=== PATIENT | female | born 1965 | race American Indian/Alaskan Native ===

== ENCOUNTER 2017-01-26 02:13 | Observation (INO) | payer BC ==
[2017-01-26 02:13] VITALS: BMI 30.7
--- NOTE | 2017-01-26 02:39 | ED PDOC ---
Arrival/HPI - General Chief Complaint: Chest Pain Time Seen by Provider: 01/26/17 02:29 Historian: Patient - History of Present Illness Narrative History of Present Illness (Text): 01/26/17 02:32 Nusrat Haider is a 51 year old female, who denies any significant past medical history, who presents to the emergency department complaining of chest pain. Patient states she woke up tonight with left-sided chest pain radiating to her left shoulder. Patient states she has experienced similar pain in the past but has not gone for further evaluation. Patient reports family history of hypertension. Patient denies any fever, chills, shortness of breath, nausea, vomiting, diarrhea, urinary symptoms, back pain, neck pain, headache, dizziness , or any other complaints. Symptom Onset: Gradual Symptom Course: Unchanged Activities at Onset: Light Context: Home Past Medical History - Provider Review Nursing Documentation Reviewed: Yes - Reproductive Menopause: Yes - Psychiatric Hx Substance Use: No - Surgical History Hx Section: Yes - Anesthesia Hx Anesthesia: Yes Hx Anesthesia Reactions: No Hx Malignant Hyperthermia: No Family/Social History - Physician Review Nursing Documentation Reviewed: Yes Family/Social History: Unknown Family HX Smoking Status: Never Smoked Hx Alcohol Use: No Hx Substance Use: No Allergies/Home Meds Allergies/Adverse Reactions: Allergies No Known Allergies Allergy (Verified 01/26/17 02:23) Home Medications: Home Meds Medication Instructions Recorded Confirmed No Known Home Med 01/26/17 01/26/17 Review of Systems - Physician Review All systems were reviewed & negative as marked: Yes - Review of Systems Constitutional: Normal. absent: Fevers Eyes: Normal ENT: Normal Respiratory: Normal. absent: SOB, Cough Cardiovascular: Chest Pain Gastrointestinal: Normal. absent: Abdominal Pain, Diarrhea, Nausea, Vomiting Genitourinary Female: Normal. absent: Dysuria, Frequency, Hematuria, Urine Output Changes Musculoskeletal: Normal. absent: Back Pain, Neck Pain Skin: Normal. absent: Rash Neurological: Normal. absent: Headache, Dizziness Endocrine: Normal Hemo/Lymphatic: Normal Psychiatric: Normal Physical Exam Vital Signs Reviewed: Yes Vital Signs Temp Pulse Resp BP Pulse Ox 01/26/17 05:27 18 01/26/17 04:48 65 16 143/89 100 01/26/17 04:04 62 16 180/106 H 100 01/26/17 02:24 97.7 F 63 18 153/97 H 99 Temperature: Afebrile Blood Pressure: Hypertensive Pulse: Regular Respiratory Rate: Normal Appearance: Positive for: Well-Appearing, Non-Toxic, Comfortable Pain Distress: None Mental Status: Positive for: Alert and Oriented X 3 - Systems Exam Head: Present: Atraumatic, Normocephalic Pupils: Present: PERRL Extroacular Muscles: Present: EOMI Conjunctiva: Present: Normal Mouth: Present: Moist Mucous Membranes Neck: Present: Normal Range of Motion Respiratory/Chest: Present: Clear to Auscultation, Good Air Exchange. No: Respiratory Distress, Accessory Muscle Use Cardiovascular: Present: Regular Rate and Rhythm, Normal S1, S2. No: Murmurs Abdomen: Present: Normal Bowel Sounds. No: Tenderness, Distention, Peritoneal Signs Back: Present: Normal Inspection Upper Extremity: Present: Normal Inspection. No: Cyanosis, Edema Lower Extremity: Present: Normal Inspection. No: Edema Neurological: Present: GCS=15, CN II-XII Intact, Speech Normal Skin: Present: Warm, Dry, Normal Color. No: Rashes Psychiatric: Present: Alert, Oriented x 3, Normal Insight, Normal Concentration Medical Decision Making ED Course and Treatment: 01/26/17 02:32 Impression: 51 year old female complaining of left-sided chest pain radiating to left shoulder. Plan: -- EKG -- Chest X-ray -- Labs, cardiac enzymes -- Aspirin -- Reassess and disposition Progress Notes: Reviewed EKG, NSR at 60 bpm. Possible left atrial enlargement. No acute changes. 01/26/17 03:51 Reviewed Chest X-ray, shows no acute processes. 01/26/17 05:[address] Schultz, who is aware and agrees with plan. Accepts pt in to his service. Pt will go to Telemetry observation for chest pain and uncontrolled hypertension. Requests Dr. La on consult. - Lab Interpretations Lab Results: 01/26/17 02:25 01/26/17 02:25 Lab Results 01/26/17 02:25: WBC 5.8, RBC 4.41, Hgb 13.1, Hct 36.5, MCV 82.8, MCH 29.7, MCHC 35.9, RDW 13.6, Plt Count 202, MPV 10.3 01/26/17 02:25: Sodium 140, Potassium 3.7, Chloride 103, Carbon Dioxide 26, Anion Gap 15, BUN 10, Creatinine 0.7, Est GFR ( Amer) > 60, Est GFR (Non- Af Amer) > 60, Random Glucose 98, Calcium 9.2, Total Bilirubin 0.5, AST 73 H, ALT 50, Alkaline Phosphatase 109, Lactate Dehydrogenase 484, Total Creatine Kinase 152, Troponin I < 0.01, Total Protein 7.7, Albumin 4.1, Globulin 3.6, Albumin/Globulin Ratio 1.1 01/26/17 02:25: PT 10.2, INR 0.94, APTT 29.7 I have reviewed the lab results: Yes - RAD Interpretation Radiology Orders: 01/26/17 02:32 CHEST PORTABLE [RAD] Stat Licensed Bondsman: ED Physician - EKG Interpretation Interpreted by ED Physician: Yes Type: 12 lead EKG - Medication Orders Current Medication Orders: Discontinued Medications Acetaminophen (Tylenol 325mg Tab) 650 mg PO ONCE ONE Stop: 01/26/17 07:49 Last Admin: 01/26/17 08:15 Dose: 650 mg Re-Assess: VIRGIL Pain/Vitals Document 01/26/17 09:15 (Rec: 01/26/17 10:20 [id number]) Pain Reassessment Is This A Pain ReAssessment? Yes Sleep Is patient sleeping during reassessment? No Presence of Pain Presence of Pain Yes Pain Scale Used Pain Scale Used Numeric Location Pain Location Body Head Inspector And Center Marker Description Constant Pressure Pain Behavior Facial Grimacing Amlodipine Besylate (Norvasc) 5 mg PO DAILY TEE Last Admin: 01/26/17 10:18 Dose: 5 mg Aspirin (Aspirin) 325 mg PO ONCE STA Stop: 01/26/17 02:43 Last Admin: 01/26/17 02:55 Dose: 325 mg Ibuprofen (Motrin Tab) 200 mg PO Q6H PRN PRN Reason: Headache Last Admin: 01/26/17 10:17 Dose: 200 mg Nitroglycerin (Nitro-Bid 2% Oint) 1 ea TOP ONCE STA Stop: 01/26/17 04:08 Last Admin: 01/26/17 04:13 Dose: 1 ea - Scribe Statement The provider has reviewed the documentation as recorded by the Kim Anderson Provider Scribe Attestation: All medical record entries made by the Scribe were at my direction and personally dictated by me. I have reviewed the chart and agree that the record accurately reflects my personal performance of the history, physical exam, medical decision making, and the department course for this patient. I have also personally directed, reviewed, and agree with the discharge instructions and disposition. Disposition/Present on Arrival - Present on Arrival Any Indicators Present on Arrival: No History of DVT/PE: No History of Uncontrolled Diabetes: No Urinary Catheter: No History of Decub. Ulcer: No History Surgical Site Infection Following: None - Disposition Have Diagnosis and Disposition been Completed?: Yes Diagnosis: Chest pain Disposition: HOSPITALIZED Disposition Time: 04:20 Condition: STABLE
[2017-01-26 02:57] LABS: HEMATOCRIT 36.5 % (36.0-48.0); MEAN CELL VOLUME 82.8 fL (80.0-105.0); MEAN CORPUSCULAR HEMOGLOBIN 29.7 pg (25.0-35.0); MEAN CORPUSCULAR HGB CONC 35.9 g/dl (31.0-37.0); MEAN PLATELET VOLUME 10.3 fl (7.0-11.0); RED CELL DISTRIBUTION WIDTH 13.6 % (11.5-14.5); WHITE BLOOD COUNT 5.8 10^3/ul (4.5-11.0)
[2017-01-26 03:01] LABS: INR 0.94 (0.93-1.08); PARTIAL THROMBOPLASTIN TIME 29.7 Seconds (23.7-30.8)
[2017-01-26 03:08] LABS: ALB/GLOB RATIO 1.1 (1.1-1.8); ALKALINE PHOSPHATASE 109 U/L (38-133); ALT/SGPT 50 U/L (7-56); AST/SGOT 73 U/L (15-39); BILIRUBIN,TOTAL 0.5 mg/dL (0.2-1.3); BLOOD UREA NITROGEN 10 mg/dL (7-21); CALCIUM 9.2 mg/dL (8.4-10.5); CARBON DIOXIDE 26 mmol/L (21-33); CHLORIDE 103 mmol/L (98-107); GFR AFRICAN-AMERICAN > 60; GLUCOSE,RANDOM 98 mg/dL (70-110); POTASSIUM 3.7 mmol/L (3.6-5.0); SODIUM 140 mmol/L (132-148); TOTAL PROTEIN 7.7 g/dL (5.8-8.3)
[2017-01-26 03:16] LABS: TROPONIN I < 0.01 ng/mL
[2017-01-26] MEDS ORDERED: Nitroglycerin 2% Ointment Foilpak UD TOP STA (04:07)
--- NOTE | 2017-01-26 09:43 | RAD ---
HISTORY: pain COMPARISON: No prior. FINDINGS: LUNGS: No active pulmonary disease. PLEURA: No significant pleural effusion identified, no pneumothorax apparent. CARDIOVASCULAR: Normal. OSSEOUS STRUCTURES: No significant abnormalities. VISUALIZED UPPER ABDOMEN: Normal. OTHER FINDINGS: None. IMPRESSION: No active disease.
--- NOTE | 2017-01-26 10:09 | CARD ---
APPROVED REPORT EKG Measurement Heart [id number] <Conclusion> Normal sinus rhythm Normal ECG
--- NOTE | 2017-01-26 13:13 | CON ---
DATE: 01/26/2017 HISTORY OF PRESENT ILLNESS: The patient is a 51-year-old woman who presents with an episode of substernal chest discomfort which is transient. The patient is currently chest pain free. She had a previous episode 1 month ago which nothing was done. The patient has no cardiac risk factors other than hypertension which was recently diagnosed. She is currently on no medications. No diabetes mellitus. No previous cardiac history. No family history for CAD. SOCIAL HISTORY: The patient does not smoke. REVIEW OF SYSTEMS: A 14-point review of systems was reviewed in detail. No cardiac symptomatology is noted. PHYSICAL EXAMINATION: VITAL SIGNS: Blood pressure is 146/81, heart rate in the 60s. NECK: Negative JVD. LUNGS: Without rales. HEART: S1 and S2. EXTREMITIES: Without edema. LABORATORY DATA: Revealed an EKG that is within normal limits. Troponins are negative x1. The hemoglobin is 13.1. IMPRESSION 1. Transient chest pain. 2. No evidence for acute coronary syndrome. 3. History of hypertension. 4. No previous cardiac history. PLAN: Given these findings, we will obtain a second troponin. If negative, I have discussed with the patient about the need for diagnostic studies. We will arrange for an outpatient stress test which can be done later on this week. Follow up instructions as well as follow up care has been discussed with the patient in detail. Antonino La MD
--- NOTE | 2017-01-26 15:55 | HP ---
HISTORY OF PRESENT ILLNESS: I saw Nusrat this morning resting in bed. She slept fairly well, she came in middle of the night with chest pain. She is a 51-year-old female who presents to the emergency room with chest pain. She woke up left-sided chest pain radiating to left shoulder. She has had this before in the past, but it is gone away. She evaluation. FAMILY HISTORY: Hypertension. She is here for evaluation of her chest pain. PAST MEDICAL HISTORY: Menopause, had C-sections, hypertension in the family. SOCIAL HISTORY: She never smoke, alcohol, or drugs. ALLERGIES: NO KNOWN DRUG ALLERGIES. MEDICATIONS: She does not take any medications. 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 REVIEW OF SYSTEMS: No acute vision change. No hearing changes. No sore throat. No neck pain. No shortness of breath, and cough. There is chest pain left side into the shoulder. No palpitations. No nausea, vomiting, constipation, or diarrhea. No problems of urinating. She has a chest pain could be into the ribs. No extremity pains. No back pains. Skin is intact. No rashes. No headaches, dizziness, and numbness. No anxiety. No depression. PHYSICAL EXAMINATION: VITAL SIGNS: She temperature, 63 pulse, 18 respiratory rate, 163/87, 180/106 blood pressures when she came in, it is actually drop down to 130/80 this morning and 100% O2 sat on room air. HEENT: Head atraumatic and normocephalic. Well appearing nontoxic alert, oriented to x3. Extraocular muscles are intact. Pupils equal and reactive to light and accommodation. Throat is moist. No erythema. NECK: Supple. No JVD. HEART: Regular rate normal S1 and S2. LUNGS: Clear to auscultation clearly air exchange. ABDOMEN: Soft, nontender. Positive bowel sounds. No guarding, no rebound. No CVA tenderness. EXTREMITIES: Have no edema. She move all 4 extremities well. NEUROLOGIC: GCS is 15, cranial nerves II through XII grossly intact. Skin is warm and dry. Alert and oriented x3. Thyroid midline, no palpable or appreciative lymphadenopathy and questionable left chest pain. LABORATORY DATA: She had lots of test done, she is a 140 sodium, potassium 3.7, BUN 10, creatinine 0.7, GFR is greater than 60, sugar is 98, calcium is 9.2, total bilirubin 0.5, AST is 73, ALT is 50, alkaline phosphatase is 109, lactate dehydrogenase is 44, total creatinine kinase is 152, troponin is 1 less than 0.01, repeating the troponin, total protein 7.7, albumin 4.1, globulin 3.6, INR is 0.94. She has a 5.8 white count, 30.1 hemoglobin, 36.5 hematocrit with 202 platelets. Chest x-ray is pending. EKG is pending. It is a consult for Dr. La cariology showed she have aspirin today and nitroglycerine as p.r.n. she has oxygen is needed see if her chest pain could be chest wall from her physical job that she has. I feel Dr. La wants to do, she might schedule as outpatient stress test, troponin is negative, she is here for chest pain. Jeffery Schultz DO MTDD
[2017-01-26 17:29] VITALS: BP 137/75; PULSE 77; RESP 18; TEMP 98.7; O2SAT 99
--- NOTE | 2017-02-16 09:55 | DS ---
She is being discharged today. She was seen by the mercury cracking tester who felt that this is not a coronary artery disease. Her tests were pretty good and she will be followed up as an outpatient. She came in with chest pain, so cardiology consulted, troponins of the heart which were normal. She will be followed up in the outpatient for an outpatient stress test as per cardiology and she was discharged with atypical chest pain. She was in observation status. Jeffery Schultz DO
== END 2017-01-26 19:11 | disposition home or self-care (01) ==
LOC: ED 02:13 → ERH 04:19 → 2RNO 05:40
PROVIDERS: ADMIT Family Medicine; ATTEND Family Medicine
DX: R07.89 Other chest pain (principal); I10 Essential (primary) hypertension; Z82.49 Family history of ischemic heart disease and other diseases of the circulatory system
CPT/HCPCS: 71010; 80053; 82550; 83615; 84484; 85027; 85610; 85730; 93005; 99285; G0378